=== PATIENT | female | born 1995 | race Two or more races ===

== ENCOUNTER 2019-05-31 01:01 | Outpatient (CLI) | payer MEDICAID ==
[2019-05-31 01:49] LABS: APPEARANCE,URINE CLEAR; BILIRUBIN,URINE NEGATIVE (NEGATIVE); COLOR,URINE YELLOW; GLUCOSE, URINE NEGATIVE (NEGATIVE); KETONES,URINE NEGATIVE (NEGATIVE); LEUKOCYTE ESTERASE,URINE NEGATIVE (NEGATIVE); NITRITE,URINE NEGATIVE (NEGATIVE); PROTEIN,URINE NEGATIVE (NEGATIVE); URINE SPECIFIC GRAVITY 1.005; UROBILINOGEN,URINE NEGATIVE mg/dL (<2.0)
[2019-05-31 02:37] LABS: URINE AMPHETAMINES SCREEN NEGATIVE; URINE BARBITURATES SCREEN NEGATIVE; URINE BENZODIAZEPINES SCREEN NEGATIVE; URINE COCAINE SCREEN NEGATIVE; URINE MARIJUANA (THC) SCREEN NEGATIVE; URINE METHADONE SCREEN NEGATIVE; URINE PHENCYCLIDINE SCREEN NEGATIVE
== END 2019-05-31 04:10 | disposition home or self-care (01) ==
LOC: LC 01:01
PROVIDERS: ATTEND Obstetrics & Gynecology
DX: O47.9 False labor, unspecified (principal)
CPT/HCPCS: 59025; 80307; 81005; 84112

== ENCOUNTER → 2019-06-01 | Outpatient (CLI) | payer MEDICAID | LOC: LC 11:42 | PROVIDERS: ATTEND Obstetrics & Gynecology Gynecology | PROC: 4A1HXCZ Monitoring of Products of Conception, Cardiac Rate, External Approach (ICD-10-PCS; principal; 2019-06-01) | DX: O48.0 Post-term pregnancy (principal); Z3A.40 40 weeks gestation of pregnancy | CPT/HCPCS: 59025 ==

== ENCOUNTER 2019-06-02 19:16 | Inpatient (IN) | payer MEDICAID ==
[2019-06-02] MEDS ORDERED: OXYTOCIN 10 UNIT/ML VIAL ONE (19:23)
[2019-06-02] MEDS ORDERED: LIDOCAINE 1% INJ-PF (10 MG/ML) 30 ML SDV ONE (19:23)
[2019-06-02] MEDS ORDERED: MISOPROSTOL 0.2 MG TABLET ONE (19:23)
[2019-06-02] MEDS ORDERED: OXYTOCIN/NORMAL SALINE 20 UNIT/1,000 ML RTUINJ ONE (19:24)
[2019-06-02] MEDS ORDERED: RINGERS SOLUTION,LACTATED 1,000 ML IV PRN (19:39)
[2019-06-02 20:06] LABS: ABSOLUTE BASOPHILS # (AUTO) 0.1 10^3/uL (0.0-0.2); ABSOLUTE LYMPHOCYTES (AUTO) 1.5 10^3/uL (0.5-4.7); ABSOLUTE MONOCYTES (AUTO) 0.7 10^3/uL (0.1-1.4); ABSOLUTE NEUT (AUTO) 10.2 10^3/uL (1.7-8.2); BASOPHILS % (AUTO) 0.5 % (0-2); EOSINOPHILS % (AUTO) 0.1 % (0-6); HEMATOCRIT 37.4 % (36.0-47.0); HEMOGLOBIN 12.8 g/dL (12.0-15.5); LYMPHOCYTES % (AUTO) 12.2 % (13-45); MEAN CORPUSCULAR HEMOGLOBIN 29.3 pg (27.0-33.4); MEAN CORPUSCULAR HGB CONC 34.3 g/dL (32.0-36.0); MEAN CORPUSCULAR VOLUME 85 fl (80-97); MONOCYTES % (AUTO) 5.8 % (3-13); PLATELET COUNT 131 10^3/uL (150-450); RED BLOOD COUNT 4.38 10^6/uL (3.72-5.28); RED CELL DISTRIBUTION WIDTH 13.8 % (11.5-14.0); SEGMENTED NEUTROPHILS % (AUTO) 81.4 % (42-78); TOTAL CELLS COUNTED % (AUTO) 100 %; WHITE BLOOD COUNT 12.5 10^3/uL (4.0-10.5)
[2019-06-02 20:17] LABS: APPEARANCE,URINE CLEAR; BILIRUBIN,URINE NEGATIVE (NEGATIVE); COLOR,URINE YELLOW; GLUCOSE, URINE NEGATIVE (NEGATIVE); KETONES,URINE 80 mg/dL (NEGATIVE); LEUKOCYTE ESTERASE,URINE NEGATIVE (NEGATIVE); NITRITE,URINE NEGATIVE (NEGATIVE); PROTEIN,URINE NEGATIVE (NEGATIVE); URINE SPECIFIC GRAVITY 1.006; UROBILINOGEN,URINE NEGATIVE mg/dL (<2.0)
[2019-06-02] MEDS ORDERED: PROMETHAZINE HCL INJ 25 MG/1 ML VIAL ONE (20:29)
[2019-06-02] MEDS ORDERED: NALBUPHINE HCL INJ 10 MG/1 ML AMPULE ONE (20:29)
[2019-06-02] MEDS ORDERED: PROMETHAZINE HCL INJ 25 MG/1 ML VIAL IV ONE (20:30)
[2019-06-02] MEDS ORDERED: NALBUPHINE HCL INJ 10 MG/1 ML AMPULE IM ONE (20:30)
[2019-06-02 20:32] LABS: URINE AMPHETAMINES SCREEN NEGATIVE; URINE BARBITURATES SCREEN NEGATIVE; URINE BENZODIAZEPINES SCREEN NEGATIVE; URINE COCAINE SCREEN NEGATIVE; URINE MARIJUANA (THC) SCREEN NEGATIVE; URINE METHADONE SCREEN NEGATIVE; URINE PHENCYCLIDINE SCREEN NEGATIVE
[2019-06-02] MEDS ORDERED: IBUPROFEN 800 MG TABLET ONE (22:28)
[2019-06-02] MEDS ORDERED: ACETAMINOPHEN WITH CODEINE #3 TABLET ONE (22:28)
[2019-06-02] MEDS ORDERED: IBUPROFEN 800 MG TABLET PO ONE (23:00)
[2019-06-02] MEDS ORDERED: ACETAMINOPHEN WITH CODEINE #3 TABLET PO ONE (23:00)
[2019-06-02] MEDS ORDERED: ACETAMINOPHEN 650 MG SUPP.RECT PR PRN (23:34)
[2019-06-02] MEDS ORDERED: ACETAMINOPHEN WITH CODEINE #3 TABLET PO PRN (23:34)
[2019-06-02] MEDS ORDERED: MEASLES,MUMPS&RUBELLA VACC/PF 0.5 ML VIAL SUBCUT PRN (23:34)
[2019-06-02] MEDS ORDERED: BENZOCAINE/MENTHOL AEROSOL SPRAY 56 ML TOP PRN (23:34)
[2019-06-02] MEDS ORDERED: NA PHOS,M-B/NA PHOS,DI-BA (ADULT) 133 ML ENEMA PR PRN (23:34)
[2019-06-02] MEDS ORDERED: GLYCERIN/WITCH HAZEL LEAF 1 EACH MED..WIPE TP PRN (23:34)
[2019-06-02] MEDS ORDERED: PSEUDOEPHEDRINE HCL 30 MG TABLET PO PRN (23:34)
[2019-06-02] MEDS ORDERED: PROMETHAZINE HCL 25 MG SUPP.RECT PR PRN (23:34)
[2019-06-02] MEDS ORDERED: DIBUCAINE 1% OINTMENT 56 GM TP PRN (23:34)
[2019-06-02] MEDS ORDERED: DIPH/PERTUSS(ACELL)/TETANUS VAC/PF 0.5 ML SYR (>=10YO) IM PRN (23:34)
[2019-06-02] MEDS ORDERED: DIPHENHYDRAMINE HCL 25 MG CAPSULE PO PRN (23:34)
[2019-06-02] MEDS ORDERED: MAGNESIUM HYDROXIDE SUSP 30 ML UDCUP PO PRN (23:34)
[2019-06-02] MEDS ORDERED: PROMETHAZINE HCL 25 MG TABLET PO PRN (23:34)
[2019-06-02] MEDS ORDERED: PROMETHAZINE HCL INJ 25 MG/1 ML VIAL IV PRN (23:34)
[2019-06-02] MEDS ORDERED: OXYTOCIN/NORMAL SALINE 20 UNIT/1,000 ML RTUINJ IV PRN (23:34)
[2019-06-02] MEDS ORDERED: ZOLPIDEM TARTRATE 5 MG TABLET PO PRN (23:34)
--- NOTE | 2019-06-02 23:55 | Delivery Summary ---
Del Sum A-C Datetime Report Generated by CPN: 06/02/2019 23:55 DELIVERY PERSONNEL DELIVERY PERSONNEL: [id number] Delivery Doctor:: Radha Segura MD Labor and Delivery Nurse:: Lilly Osuna RNtransport technician Nurse:: Mirella Miguel RN Nursery Nurse:: Ruby Leo RN Sider/LABOR RELATIONS SPECIALIST: Sarah Santana PEST CONTROL CHEMICAL TECHNICIAN MATERNAL INFORMATION Delivery Anesthesia: None Medications After Delivery: Pitocin Drip 20 Units/1000ml NSS Delivery QBL: 100 Maternal Complications: Precipitous Labor (<3hrs) LABOR SUMMARY EDC: 05/31/2019 00:00 No. Babies in Womb: 1 Attempted: No Labor Anesthesia: None LABOR INFORMATION Reason for Induction: Not Applicable Onset of Labor: 06/02/2019 19:20 Complete Dilatation: 06/02/2019 21:47 Oxytocin: N/A Group B Beta Strep: Negative Steroids Given: None Reason Steroids Not Administered: Not Applicable MEMBRANES Membranes Rupture Method: Artificial Rupture of Membranes: 06/02/2019 21:44 Length of Rupture (hr): 0.15 Amniotic Fluid Color: Clear Amniotic Fluid Amount: Moderate Amniotic Fluid Odor: Normal STAGES OF LABOR Stage 1 hr: 2 Stage 1 min: 27 Stage 2 hr: 0 Stage 2 min: 6 Stage 3 hr: 0 Stage 3 min: 6 Total Time in Labor hr: 2 Total Time in Labor min: 39 VAGINAL DELIVERY Episiotomy: None Laceration #1: None Laceration Extension #1: N/A Laceration Repair: Not Applicable Sponge Count Correct: N/A Sharps Count Correct: N/A CSECTION DELIVERY Primary Indication: N/A Secondary Indication: N/A CSection Incidence: N/A Labor: N/A Elective: N/A CSection Incision: N/A BABY A INFORMATION Infant Delivery Date/Time: 06/02/2019 21:53 Method of Delivery: Vaginal Born in Route : No : N/A Forceps: N/A Vacuum Extraction: N/A Shoulder Dystocia : No PRESENTATION/POSITION BABY A Presentation: Cephalic Cephalic Presentation: Vertex Vertex Position: Right Occipital Anterior Breech Presentation: N/A PLACENTA INFORMATION BABY A Placenta Delivery Time : 06/02/2019 21:59 Placenta Method of Delivery: Spontaneous Placenta Status: Delivered SCORES BABY A Heart Rate 1 min: >100 bpm Resp Effort 1 min: Slow, Irregular Reflex Irritability 1 min: Cough or Sneeze or Pulls Away Muscle Tone 1 min: Active Motion Color 1 min: Blue/Pale Resuscitation Effort 1 min: Tactile Stimulation; Oxygen SCORE 1 MIN: 7 Heart Rate 5 min: >100 bpm Resp Effort 5 min: Good Cry Reflex Irritability 5 min: Cough or Sneeze or Pulls Away Muscle Tone 5 min: Active Motion Color 5 min: Blue/Pale Resuscitation Effort 5 min: Tactile Stimulation; Oxygen SCORE 5 MIN: 8 Heart Rate 10 min: >100 bpm Resp Effort 10 min: Good Cry Reflex Irritability 10 min: Cough or Sneeze or Pulls Away Muscle Tone 10 min: Active Motion Color 10 min: Body [place], Extremities Blue Resuscitation Effort 10 min: N/A SCORE 10 MIN: 9 INFORMATION BABY A Infant Outcome : Liveborn Condition : Stable Infant Sex: Male IDENTIFICATION BABY A Infant Verification Date/Time: 06/02/2019 22:11 ID Band Number: [id number] Mother's Name Verified: Yes Infant RN Verifying : Chalman, A. RN Additional Verifying Personnel: Osuna, N. RN WEIGHT/LENGTH BABY A Infant Birthweight (gm): 2975 Infant Weight (lb): 6 Infant Weight (oz): 9 Infant Length (in): 20.00 Length (cm): 50.80 CORD INFORMATION BABY A Nuchal Cord : Around Neck x1, Tight Cord Blood Taken: Yes-For Storage (Mom's Blood type +) Suction: Mouth; Nose ASSESSMENT BABY A Skin to Skin: Yes Care By: [facility] RN Transferred To: Nursery BABY B INFORMATION : N/A
--- NOTE | 2019-06-02 23:56 | Admission Physical ---
Datetime Report Generated by CPN: 06/02/2019 23:56 CURRENT ADMISSION Chief Complaint: Uterine Contractions; Maternal Discomfort; Other Chief Complaint Other: Painful contractions Indication for Induction: Not Applicable Admit Impression : Term, Intrauterine ; Active Labor Admit Plan: Admit to Unit; Initiate Labor Protocol ALLERGIES Medication Allergies: No Medication Allergies: No Known Allergies (05/31/2019) Latex: No Latex Allergies OBSTETRICAL HISTORY EDC: 05/31/2019 00:00 : 4 Para: 3 Term: 3 : 0 SAB: 0 IAB: 0 Ectopic: 0 Livin Cesareans: 0 VBACs: 0 Multiple Births: 0 Gestational Diabetes: No Rh Sensitization: No Incompetent Cervix: No KARI: No Infertility: No ART Treatment: No Uterine Anomaly: No IUGR: No Hx Previous C/S: No Macrosomia: No Hx Loss/Stillborn: No PIH: No Hx : No Placenta Previa/Abruption: No Depression/PP Depression: No PTL/PROM: No Post Hemorrhage: No Current Procedures: Ultrasound; NST Obstetrical History Comments: G1- 2011 at 37.2, 4lbs 14oz female- IOL for pre-E, IUGR G2- 2013 at 38.1, 5lbs 8oz female G3- 2015 at 37.4, 5lbs 14oz female G4- current SEE RECORDS Alcohol: No Marijuana : No Cocaine: No Other Illicit Drugs: No Cigarettes: Never Smoker. [id number] MEDICAL HISTORY Diabetes: No Blood Transfusion: No Pulmonary Disease (Asthma, TB): No Breast Disease: No Hypertension: No Web Administrator Surgery: No Heart Disease: No Hosp/Surgery: No Autoimmune Disorder: No Anesthetic Complications: No Kidney Disease: No Abnormal Pap Smear: No Neuro/Epilepsy: No Psychiatric Disorders: No Other Medical Diseases: No Hepatitis/Liver Disease: No Significant Family History: No Varicosities/Phlebitis: No Trauma/Violence : No Thyroid Dysfunction: No INFECTIOUS HISTORY Gonorrhea: No Genital Herpes: No Chlamydia: No Tuberculosis: No Syphilis: No Hepatitis: No HIV/AIDS Exposure: No Rash or Viral Illness: No HPV: No PHYSICAL EXAM General: Normal HEENT: Normal Neurologic: Normal Thyroid: Deferred Heart: Normal Lungs: Normal Breast: Deferred Back: Normal Abdomen: Normal Genitourinary Exam: Normal Extremities: Normal DTRs: Deferred Pelvic Type: Adequate Physical Exam Comments: Exaggerated anterior displacement of coccyx Vital Signs: Reviewed; Within Normal Limits VAGINAL EXAM Dilatation: 4 Effacement: 60 Station: -2 Contraction Comments: q2mins MEMBRANES Membranes: Intact FETUS A EGA: 40.2 Monitoring: External US FHR- Baseline: 150 Variability: Moderate 6-25bpm Accelerations: 15X15 Decelerations: None FHR Category: Category I FHR Comments: Reactive Estimated Weight (gm): 3000g Presentation: Vertex PLANS FOR LABOR AND DELIVERY Labor and Delivery: None Pain Management: None Feeding Preference: Breast Benefit of Breast Feed Discussed: Yes Circumcision: N/A INFORMED CONSENT Signature: with User ID: [email or web address]
[2019-06-03] MEDS: ACETAMINOPHEN WITH CODEINE #3 TABLET PO PRN ×4 (04:00→19:21)
[2019-06-03] MEDS: IBUPROFEN 800 MG TABLET PO SCH ×3 (05:16→21:28)
[2019-06-03 06:46] LABS: HEMATOCRIT 33.8 % (36.0-47.0); HEMOGLOBIN 11.5 g/dL (12.0-15.5); MEAN CORPUSCULAR HGB CONC 33.9 g/dL (32.0-36.0); MEAN CORPUSCULAR VOLUME 86 fl (80-97); PLATELET COUNT 119 10^3/uL (150-450); RED BLOOD COUNT 3.95 10^6/uL (3.72-5.28); RED CELL DISTRIBUTION WIDTH 13.9 % (11.5-14.0); WHITE BLOOD COUNT 12.8 10^3/uL (4.0-10.5)
[2019-06-03] MEDS: FAMOTIDINE 20 MG TABLET PO SCH ×3 (06:56→21:29)
[2019-06-03 08:27] VITALS: BP 110/69
[2019-06-03] MEDS: FERROUS SULFATE 325 MG TABLET PO SCH ×2 (09:28→17:39)
[2019-06-03] MEDS: SENNOSIDES/DOCUSATE 8.6-50 MG 1 EACH TABLET PO SCH (09:28)
[2019-06-03] MEDS: PRENATAL VITAMIN W DHA CAPSULE PO SCH (09:28)
[2019-06-03] MEDS: DOCUSATE SODIUM 100 MG CAPSULE PO SCH ×2 (09:28→17:39)
--- NOTE | 2019-06-03 10:27 | PDOC PROGRESS REPORT ---
Subjective-OB Progress Note for:: 06/03/19 Subjective: reports bleeding slowing, pain controlled with current meds. denies needs Physical Exam (OB) Vital Signs: Temp Pulse Resp BP Pulse Ox 97.7 F 71 12 110/69 100 06/03/19 08:26 06/03/19 08:26 06/03/19 08:26 06/03/19 08:26 06/03/19 08:26 Intake & Output 06/02/19 06/03/19 06/04/19 06:59 06:59 06:59 Intake Total 600 Balance 600 - Abdomen Description: Soft, Round Hernia Present: No Fundal Description: Firm, Midline Fundal Height: u/u - u/2 - Abdominal Distension: No distension Tenderness: Nontender - Extremities Lower extremities: Cameron's sign - neg Calf: Normal, Nontender Objective-Diagnostic Laboratory: 06/03/19 06:18 06/02/19 06/02/19 06/02/19 19:25 19:49 19:49 WBC 12.5 H RBC 4.38 Hgb 12.8 Hct 37.4 MCV 85 MCH 29.3 MCHC 34.3 RDW 13.8 Plt Count 131 L Seg Neutrophils % 81.4 H Lymphocytes % 12.2 L Monocytes % 5.8 Eosinophils % 0.1 Basophils % 0.5 Absolute Neutrophils 10.2 H Absolute Lymphocytes 1.5 Absolute Monocytes 0.7 Absolute Eosinophils 0.0 Absolute Basophils 0.1 Urine Color YELLOW Urine Appearance CLEAR Urine pH 6.0 Ur Specific [place] 1.006 Urine Protein NEGATIVE Urine Glucose (UA) NEGATIVE Urine Ketones 80 H Urine Blood LARGE H Urine Nitrite NEGATIVE Ur Leukocyte Esterase NEGATIVE Blood Type A POSITIVE Antibody Screen NEGATIVE 06/03/19 06:18 WBC 12.8 H RBC 3.95 Hgb 11.5 L Hct 33.8 L MCV 86 MCH 29.0 MCHC 33.9 RDW 13.9 Plt Count 119 L Seg Neutrophils % Lymphocytes % Monocytes % Eosinophils % Basophils % Absolute Neutrophils Absolute Lymphocytes Absolute Monocytes Absolute Eosinophils Absolute Basophils Urine Color Urine Appearance Urine pH Ur Specific [place] Urine Protein Urine Glucose (UA) Urine Ketones Urine Blood Urine Nitrite Ur Leukocyte Esterase Blood Type Antibody Screen Assessment and Plan(PN) - Assessment and Plan (1) Vaginal delivery Is this a current diagnosis for this admission?: Yes - Time Spent with Patient Time with patient: Less than 15 minutes Medications reviewed and adjusted accordingly: Yes - Disposition Anticipated Discharge: Home Within: within 24 hours
[2019-06-04] MEDS: ACETAMINOPHEN WITH CODEINE #3 TABLET PO PRN ×2 (04:01→10:27)
[2019-06-04] MEDS: IBUPROFEN 800 MG TABLET PO SCH ×2 (05:16→14:25)
--- NOTE | 2019-06-04 09:40 | PDOC DISCHARGE SUMMARY ---
Final Diagnosis Discharge Date: 06/04/19 - Day #2, doing well, no complaints, desires outpatient BTL, A+, Rubella Immune, - Final Diagnosis (1) Acute blood loss anemia Is this a current diagnosis for this admission?: Yes (2) Asthma Is this a current diagnosis for this admission?: Yes (3) IUGR (intrauterine growth retardation), delivered, current hospitalization Is this a current diagnosis for this admission?: Yes (4) Vaginal delivery Is this a current diagnosis for this admission?: Yes Discharge Data - Discharge Medication Prescriptions: Ibuprofen [Motrin 800 mg Tablet] 800 mg PO Q8 #60 tablet Home Medications: Vit No.129/Iron/Folic [ One Daily Tablet] 1 tab PO DAILY 09/13/15 Ibuprofen [Motrin 800 mg Tablet] 800 mg PO Q8 #60 tablet 06/04/19 Reason(s) for Admission: Onset of Labor Procedures: Ultrasound Intrapartum Procedure(s): Spontaneous Vaginal Delivery - Diagnosis Test Laboratory: Temp Pulse Resp BP Pulse Ox 97.7 F 71 12 110/69 100 06/03/19 08:26 06/03/19 08:26 06/03/19 08:26 06/03/19 08:26 06/03/19 08:26 06/02/19 06/02/19 06/03/19 19:25 19:49 06:18 RBC 4.38 3.95 Hgb 12.8 11.5 L Hct 37.4 33.8 L Urine Opiates Screen NEGATIVE - Discharge information/Instructions Discharge Activity: Activity As Tolerated, No Lifting Over 10 Pounds, Pelvic Rest Discharge Diet: As Tolerated, Regular Disposition: HOME, SELF-CARE Follow up with: [facility] in: 2, Weeks - f/u with [facility] for BTL consultation and to schedule
[2019-06-04] MEDS: DOCUSATE SODIUM 100 MG CAPSULE PO SCH (10:24)
[2019-06-04] MEDS: FERROUS SULFATE 325 MG TABLET PO SCH (10:24)
[2019-06-04] MEDS: PRENATAL VITAMIN W DHA CAPSULE PO SCH (10:24)
[2019-06-04] MEDS: SENNOSIDES/DOCUSATE 8.6-50 MG 1 EACH TABLET PO SCH (10:24)
[2019-06-04] MEDS: FAMOTIDINE 20 MG TABLET PO SCH (10:24)
== END 2019-06-04 15:50 | disposition home or self-care (01) | DRG 807 ==
LOC: LC 19:16 → LR 19:37 → 2S 06-03 00:10
PROVIDERS: ADMIT Obstetrics & Gynecology; ATTEND Obstetrics & Gynecology
PROC: 10E0XZZ Delivery of Products of Conception, External Approach (ICD-10-PCS; principal; 2019-06-02)
DX: O62.3 Precipitate labor (principal); Z37.0 Single live birth; O69.1XX0 Labor and delivery complicated by cord around neck, with compression, not applicable or unspecified; O36.5930 Maternal care for other known or suspected poor fetal growth, third trimester, not applicable or unspecified; O99.52 Diseases of the respiratory system complicating childbirth; J45.909 Unspecified asthma, uncomplicated; O99.02 Anemia complicating childbirth; D64.9 Anemia, unspecified; Z3A.40 40 weeks gestation of pregnancy
CPT/HCPCS: 36415; 80307; 81005; 85025; 85027; 86592; 86850; 86900; 86901; J2300; J2550; J2590; J3490

== ENCOUNTER 2019-07-23 09:14 | Day surgery (SDC) | payer MEDICAID ==
[2019-07-19 10:06] LABS: APPEARANCE,URINE CLEAR; BILIRUBIN,URINE NEGATIVE (NEGATIVE); COLOR,URINE YELLOW; GLUCOSE, URINE NEGATIVE (NEGATIVE); KETONES,URINE NEGATIVE (NEGATIVE); LEUKOCYTE ESTERASE,URINE NEGATIVE (NEGATIVE); NITRITE,URINE NEGATIVE (NEGATIVE); PROTEIN,URINE NEGATIVE (NEGATIVE); URINE SPECIFIC GRAVITY 1.011; UROBILINOGEN,URINE NEGATIVE mg/dL (<2.0)
[2019-07-19 10:32] LABS: HEMATOCRIT 41.7 % (36.0-47.0); HEMOGLOBIN 14.3 g/dL (12.0-15.5); MEAN CORPUSCULAR HGB CONC 34.3 g/dL (32.0-36.0); MEAN CORPUSCULAR VOLUME 85 fl (80-97); PLATELET COUNT 237 10^3/uL (150-450); RED BLOOD COUNT 4.92 10^6/uL (3.72-5.28); RED CELL DISTRIBUTION WIDTH 13.4 % (11.5-14.0); WHITE BLOOD COUNT 9.3 10^3/uL (4.0-10.5)
[~2019-07-23 09:14] MED LIST: DEXAMETHASONE SOD PHOSPHATE INJ 4 MG/1 ML VIAL ONE; GLYCOPYRROLATE 1 MG/5 ML VIAL ONE; LACTATED RINGERS 1000 ML IV PRN; LIDOCAINE 2% INJ-PF (20 MG/ML) 2 ML AMPUL ONE; NEOSTIGMINE METHYLSULFATE 10 MG/10 ML VIAL ONE; ONDANSETRON HCL INJ/PF 4 MG/2 ML SDV ONE; ROCURONIUM BROMIDE INJ 50 MG/5 ML VIAL IV ONE
[2019-07-23] MEDS ORDERED: MIDAZOLAM 2 MG/2 ML INJ ONE (09:53)
[2019-07-23] MEDS ORDERED: PROPOFOL INJ 200 MG/20 ML VIAL IV ONE (09:53)
[2019-07-23] MEDS ORDERED: FENTANYL CITRATE INJ/PF 250 MCG/5 ML AMPULE ONE (09:53)
[2019-07-23] MEDS ORDERED: FENTANYL CITRATE INJ/PF 100 MCG/2 ML AMPUL IV PRN ×3 (10:22)
[2019-07-23] MEDS ORDERED: MEPERIDINE HCL/PF INJ 25 MG/1 ML DISP.SYRIN IV PRN (10:22)
[2019-07-23] MEDS ORDERED: PROMETHAZINE HCL INJ 25 MG/1 ML VIAL IV PRN ×2 (10:22)
[2019-07-23] MEDS ORDERED: OXYCODONE-ACETAMINOPHEN 5-325 MG TABLET PO PRN ×4 (10:22→10:44)
[2019-07-23] MEDS ORDERED: DIPHENHYDRAMINE HCL 50 MG/ML VIAL IV PRN (10:22)
[2019-07-23] MEDS ORDERED: RINGERS SOLUTION,LACTATED 1,000 ML IV PRN (10:44)
[2019-07-23] MEDS ORDERED: IBUPROFEN 800 MG TABLET PO PRN (10:44)
[2019-07-23] MEDS ORDERED: KETOROLAC TROMETHAMINE INJ/PF 30 MG/1 ML SDV IV PRN (10:44)
--- NOTE | 2019-07-23 10:48 | Operative Report ---
Operative Report DATE OF SURGERY: 07/23/19 PREOPERATIVE DIAGNOSIS: Patient desires tubal ligation POSTOPERATIVE DIAGNOSIS: Same OPERATION: Laparoscopic bilateral Filshie clip application SURGEON: ESTER BUNCH ANESTHESIA: GA TISSUE REMOVED OR ALTERED: Fallopian tubes ESTIMATED BLOOD LOSS: Minimal INTRAOPERATIVE FINDINGS: Normal uterus tubes ovaries PROCEDURE: Patient was taken the OR and placed in supine position. General anesthesia was induced. She is placed in dorsolithotomy position using Kenn stirrups. Her p erineum vagina and abdomen were prepared and draped in sterile fashion. The patient had voided before going back and did not need catheterization. An incision at the umbilicus was made in the natural umbilical defect identified and dilated with Tatyana clamp. This allowed a blunt port to be placed. Laparoscopy confirmed appropriate placement. The abdomen was insufflated with CO2 gas. Each fallopian tube was identified and followed out to its fimbriated end and then a Filshie clip was placed at the mid isthmic portion bilaterally. Bleeding was minimal. The gas was allowed to escape from the abdomen. The port and scope were removed at the same time. The fascia at the umbilicus was closed with a 2-0 Vicryl suture and the skin closed with a 4-0 undyed Vicryl suture. Sponge stick was removed from the vagina. Patient was brought out of anesthesia and taken recovery in stable condition.
--- NOTE | 2019-07-23 10:50 | Discharge Summary ---
Discharge Summary (SDC) - Discharge Final Diagnosis: Patient desires tubal ligation Date of Surgery: 07/23/19 Discharge Date: 07/23/19 Condition: Good Prescriptions: Oxycodone HCl/Acetaminophen [Percocet 5-325 mg Tablet] 1 tab PO Q4HP PRN #30 tablet PRN Reason: Referrals: SARAHI SCHULZ MD [Primary Care Provider] - Discharge Diet: Regular Discharge Activity: Activity As Tolerated Report the Following to Your Physician Immediately: Fever over 101 Degrees
[2019-07-23] MEDS: FENTANYL CITRATE INJ/PF 100 MCG/2 ML AMPUL ONE ×2 (11:06→11:20)
[2019-07-23] MEDS ORDERED: OXYCODONE-ACETAMINOPHEN 5-325 MG TABLET ONE (12:04)
[2019-07-23 13:32] VITALS: BP 126/82
== END 2019-07-23 13:15 | disposition home or self-care (01) ==
LOC: OROUT 09:14
PROVIDERS: ATTEND Obstetrics & Gynecology
DX: Z30.2 Encounter for sterilization (principal); D57.3 Sickle-cell trait; Z86.14 Personal history of Methicillin resistant Staphylococcus aureus infection
CPT/HCPCS: 36415; 85027; 81005; 81025; 00851; 58671; J2250; J3490 ×3; J1100; J3010 ×2; J2710; J2405; J2704; 851

== ENCOUNTER → 2020-04-12 | Outpatient (CLI) | payer MEDICAID ==
[2020-04-12 13:36] VITALS: BP 117/56
--- NOTE | 2020-04-12 13:36 | ER RDC ASSESSMENT REPORT ---
Intake - In the Last 14 days Have you traveled outside [place]?: No Have you been in close contact with someone CONFIRMED: No Worked in Healthcare?: No - Symptoms Subjective Fever([place] feverish): No Chills: No Muscule Aches: No Runny Nose: No Sore Throat: No Cough (New or worsening chronic cough): No Shortness of breath: No Nausea or Vomiting: No Headache: No Abdominal Pain: No Diarrhea(3 or more loose stools in last 24 hours): No - Do you have any of the following Chronic lung disease: Asthma or emphysema or COPD: No Cystic Fibrosis: No Diabetes: No High Blood Pressure: No Cardiovascular Disease: No Chronic Kidney Disease: No Chronic Liver Disease: No Chronic blood disorder like Sickle Cell Disease: No Weak immune system due to disease or medication: No Neurologic condition that limits movement: No Developmental delay - Moderate to Severe: No Recent (within past 2 weeks) or current : No Morbid Obesity (>100 pounds over ideal weight): No - Objective Temperature: 97.6 F - Oral Pulse Rate: 87 Respiratory Rate: 20 Blood Pressure: 117/56 O2 Sat by Pulse Oximetry: 95 Objective: Patient is a well-appearing 24-year-old female who presents today for COVID-19 screening. Disposition: Home; Selfcare General - General Stated Complaint: COVID-19 screening Mode of Arrival: Ambulatory Information source: Patient Notes: The patient was evaluated during the global COVID-19 pandemic. That diagnosis was suspected/considered upon initial presentation. Their evaluation, treatment, and testing was consistent with current guidelines for patients who present with complaints or symptoms that may be related to COVID-19. Patient states she has close contact with lab confirmed COVID-19 positive individual. States she was advised yesterday, and told to have COVID-19 testing completed as soon as possible. - HPI Patient complains to provider of: No complaint, asymptomatic Quality of pain: No pain Severity: None Pain Level: Denies Associated symptoms: None Exacerbated by: Denies Relieved by: Denies Similar symptoms previously: No Recently seen / treated by doctor: No - Related Data Allergies/Adverse Reactions: No Known Allergies Allergy (Verified 07/23/19 09:23) Past Medical History - Social History Smoking Status: Never Smoker Cigarette use (# per day): No Chew tobacco use (# tins/day): No Smoking Education Provided: No Frequency of alcohol use: Occasional Drug Abuse: None Occupation: Self-employed Lives with: Family Family History: Reviewed & Not Pertinent Patient has suicidal ideation: No Patient has homicidal ideation: No - Medical History Medical History: Negative - Past Medical History Cardiac Medical History: Reports: Hx Hypertension - NO MEDS Denies: Hx Coronary Artery Disease, Hx Heart Attack Pulmonary Medical History: Denies: Hx Asthma, Hx Bronchitis, Hx COPD, Hx Pneumonia Neurological Medical History: Reports: Hx Migraine. Denies: Hx Cerebrovascular Accident, Hx Seizures GI Medical History: Denies: Hx Hepatitis, Hx Hiatal Hernia, Hx Ulcer Musculoskeletal Medical History: Denies Hx Arthritis Psychiatric Medical History: Reports: Hx Anxiety, Hx Attention Deficit Hyperactivity Disorder Infectious Medical History: Denies: Hx Hepatitis Past Surgical History: Reports: Hx Adenoidectomy, Hx Tonsillectomy. Denies: Hx Hysterectomy, Hx Mastectomy, Hx Open Heart Surgery, Hx Pacemaker Physical Exam - General General appearance: Appears well In distress: None Notes: PHYSICAL EXAMINATION: GENERAL: Well-appearing and in no acute distress. HEAD: Atraumatic, normocephalic. EYES: sclera anicteric, conjunctiva are normal. ENT: nares patent. Moist mucous membranes. NECK: Normal range of motion, supple without lymphadenopathy. LUNGS: CTAB and equal. No wheezes rales or rhonchi. HEART: Regular rate and rhythm without murmurs. ABDOMEN: Soft, nontender, normal bowel sounds, no guarding. EXTREMITIES: Normal range of motion, no pitting edema. No cyanosis. BACK: No midline or CVA tenderness. NEUROLOGICAL: Cranial nerves grossly intact. Normal speech. PSYCH: Normal mood, normal affect. SKIN: Warm, Dry, normal color and turgor, no obvious lesions or rash noted. Diagnostic Results Laboratory Results: Patient advised at this time they are considered a Person Under Investigation (PUI) for the COVID-19 Coronavirus. They have been made aware it is currently taking 3-5 days to receive their results, and [facility] Department will call to advise them of their result, whether it is POSITIVE or NEGATIVE. Patient Education/Counseling Counseling/Education: Patient presents with upper respiratory symptoms worrisome for possible COVID- 19. Patient does not have symptoms worrisome as an emergency such as difficulty breathing, shortness of breath, chest pain, pressure, confusion or cyanosis. Patient appears suitable for discharge. Patient's vital signs are stable and patient is nontoxic in appearance. Good return precautions have been discussed with patient, patient verbalized understanding and is agreeable with discharge plan of care at this time. Patient provided COVID-19 discharge instructions to include: As a person under investigation for COVID-19, the [facility] and [facility] Services, division of public health advises you to adhere to the following guidance until your test results are reported to you. If your test result is positive, you will receive additional information from your provider and your local health department at that time. Remain at home until you are cleared by the health provider or public health authorities. Keep a log of visitors to your home, notify any visitors to your home of your isolation status. If you plan to move to a new address or leave the county, notify the local health department in your County. Call your doctor or seek care if you have an urgent medical need. Before seeking medical care, call ahead to get instructions from the provider before arriving at the medical office clinic or hospital. Notify them that you are being tested for the virus that causes COVID-19 so that arrangements can be made, as necessary, to prevent transmission to others in the healthcare setting. Next, notify the local health department in your county. If a medical emergency arises and you need to call 911, inform dispatch and the first responders that you are being tested for the virus that causes COVID-19. Next, notify the local health department in your county. Guidance for worsening S/SX: For worsening symptoms, patient has been advised to contact their Primary Care Provider, or go to the nearest Emergency Department. RDC Discharge - Discharge Clinical Impression: COVID-19 Screening URI (upper respiratory infection) Qualifiers: URI type: unspecified URI Qualified Code(s): J06.9 - Acute upper respiratory infection, unspecified Condition: Stable Disposition: Home; Selfcare
== END ==
LOC: RDC 11:46
PROVIDERS: ATTEND Nurse Practitioner Family
DX: Z20.828 Contact with and (suspected) exposure to other viral communicable diseases (principal)
CPT/HCPCS: 87635; C9803